=== PATIENT | female | born 1950 | race American Indian/Alaskan Native ===

== ENCOUNTER 2016-05-29 18:56 | Inpatient (IN) | payer MEDICARE ==
--- NOTE | 2016-05-29 20:12 | Emergency Department Report ---
Chief Complaint: GI Bleed Stated Complaint: RECTAL BLEEDING Time Seen by Provider: 05/29/16 20:05 - HPI History of Present Illness: Patient here with her family who reports that patient has rectal bleeding she had similar episode 6 weeks ago and she had blood transfusion at this hospital. Patient says she has a history of hemorrhoid and she had hemorrhoid surgery in the past. She says she was referred to Dr. Saucedo who she saw and was scheduled to have a EGD done next week. Patient says she had a colonoscopy April 2016. She complains of abdominal pain on and off but feels crampy in its 5 out of 10. Vital reported the patient is blind and that she noted when patient have a bowel movement she has large amount of bright red blood in the toilet. Denies taking any blood thinners. Patient has a history of diabetes, high blood pressure, acid reflux and anemia. She reports short of breath on exertion. Denies any chest pain, fever or chills or nausea vomiting - ROS Review of Systems: All systems are negative unless stated in HPI above. - Exam Vital Signs: Vital Signs 05/29/16 19:48 Temperature 98.8 F Pulse Rate 132 H Respiratory 18 Rate Blood Pressure 98/60 O2 Sat by Pulse 100 Oximetry Physical Exam: General: This is a 65-year-old female well-nourished well-developed in no acute distress. CV: Patient is tachycardic at 132 and blood pressure is 98/60. Lungs: clear To auscultate bilaterally. Normal work of breathing MSE screening note: Focused history and physical exam performed. Due to findings the following was ordered:see [facility] ED Medical Decision Making - Medical Decision Making Medical decision making: Patient seen by provider in triage area. Appropriate protocol activated and patient to main ED to be seen by physician. ED Disposition for MSE Condition: Stable Forms: Accompanied Note
[2016-05-29] MEDS ORDERED: NACL 0.9% 1000 ML 1,000 ML IV ONE (20:44)
--- NOTE | 2016-05-29 20:46 | Emergency Department Report ---
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 Multiple admissions for bright red blood per rectum requiring packed red blood cell transfusion. Surgical history includes cholecystectomy, hysterectomy, hernia repair, partial colectomy, as per history and physical from 04/09/2016. This is a 65-year-old female, previously unknown to me. Presents to the ER with 1 week of bright red blood per rectum. Admits to mild crampy abdominal discomfort. Positive dizziness, positive lightheadedness. No chest pain. Mild shortness of breath. Patient has been seen by gastroenterology, Dr. zimmerman, Dr. Saucedo in the past. MD complaint: gross hematochezia -: days(s) Quality: cramping Consistency: intermittent Improves with: none Worsens with: none Context: history of GI bleed Associated Symptoms: abdominal pain, loss of appetite, weakness - Related Data Home Medications Medication Instructions Recorded Confirmed Last Taken Metformin HCl [metFORMIN ER] 500 mg PO BID 01/22/13 05/29/16 1 Day Ago 500 glipiZIDE [glipiZIDE ER] 10 mg PO BID 01/22/13 05/29/16 1 Day Ago 10 amLODIPine [Norvasc] 10 mg PO DAILY 05/23/15 05/29/16 1 Day Ago 10 Iron,Carbonyl/Vit C/Vit B12/FA 3 tab PO QDAY 06/13/15 05/29/16 1 Day Ago [Iron 100 Plus Tablet] 1 Lisinopril 40 mg PO QDAY 06/13/15 05/29/16 1 Day Ago 40 Previous Rx's Medication Instructions Recorded Last Taken Type Pantoprazole [Protonix TAB] 40 mg PO DAILY #30 tablet 05/25/15 1 Day Ago Rx 40 Allergies Allergy/AdvReac Type Severity Reaction Status Date / Time No Known Allergies Allergy Verified 04/05/14 11:54 ED Review of Systems ROS: Stated complaint: RECTAL BLEEDING Other details as noted in HPI Constitutional: malaise, weakness Eyes: denies: vision change ENT: denies: epistaxis Respiratory: see HPI Cardiovascular: denies: chest pain Gastrointestinal: abdominal pain, hematochezia Genitourinary: as per HPI Musculoskeletal: as per HPI Neurological: weakness Psychiatric: as per HPI ED Past Medical Hx - Past Medical History Hx Hypertension: Yes (SINCE 1993) Hx Diabetes: Yes (17YRS) Hx Asthma: Yes ( A CHILD) Hx HIV: No Additional medical history: patient is blind, diverticulitis, hemmorrhoids, rectal prolapse, vaginal prolapse - Surgical History Hx Cholecystectomy: Yes ([facility] 01-28-13) Additional Surgical History: colon surgery and several eye surgeries., hernia repair, - Social History Smoking Status: Former Smoker - Medications Home Medications: Home Medications Medication Instructions Recorded Confirmed Last Taken Type Metformin HCl [metFORMIN ER] 500 mg PO BID 01/22/13 05/29/16 1 Day Ago History 500 glipiZIDE [glipiZIDE ER] 10 mg PO BID 01/22/13 05/29/16 1 Day Ago History 10 amLODIPine [Norvasc] 10 mg PO DAILY 05/23/15 05/29/16 1 Day Ago History 10 Pantoprazole [Protonix TAB] 40 mg PO DAILY #30 tablet 05/25/15 05/29/16 1 Day Ago Rx 40 Iron,Carbonyl/Vit C/Vit B12/FA 3 tab PO QDAY 06/13/15 05/29/16 1 Day Ago History [Iron 100 Plus Tablet] 1 Lisinopril 40 mg PO QDAY 06/13/15 05/29/16 1 Day Ago History 40 ED Physical Exam - General Limitations: No Limitations General appearance: alert, in no apparent distress - Head Head exam: Present: atraumatic, normocephalic - ENT ENT exam: Present: normal exam, mucous membranes moist, normal external ear exam - Neck Neck exam: Present: normal inspection, full ROM. Absent: tenderness, meningismus - Respiratory Respiratory exam: Present: normal lung sounds bilaterally. Absent: respiratory distress, wheezes, rales, rhonchi, stridor, chest wall tenderness - Cardiovascular Cardiovascular Exam: Present: normal rhythm, tachycardia, normal heart sounds. Absent: systolic murmur, diastolic murmur, rubs, gallop - GI/Abdominal GI/Abdominal exam: Present: soft, normal bowel sounds. Absent: distended, tenderness, guarding, rebound, rigid, pulsatile mass - Rectal Rectal exam: Present: normal inspection, normal rectal tone, heme (+) stool, bloody stool - Extremities Exam Extremities exam: Present: normal inspection, full ROM, normal capillary refill. Absent: tenderness, pedal edema, joint swelling, calf tenderness - Back Exam Back exam: Present: normal inspection, full ROM. Absent: tenderness, CVA tenderness (R), CVA tenderness (L), muscle spasm, paraspinal tenderness, vertebral tenderness - Neurological Exam Neurological exam: Present: alert, other (Extraocular movements intact. Tongue midline. No facial droop. Facial sensation intact to light touch in the V1, V2 , V3 distribution bilaterally. 5 and 5 strength in 4 extremities.. Sensation is intact to light touch in 4 extremities.). Absent: motor sensory deficit - Psychiatric Psychiatric exam: Present: normal affect, normal mood - Skin Skin exam: Present: warm, dry, intact, normal color. Absent: rash ED Course Vital Signs 05/29/16 05/29/16 05/29/16 19:48 21:31 22:39 Temperature 98.8 F 98.2 F Pulse Rate 132 H 102 H 98 H Pulse Rate [ Right] Respiratory 18 16 16 Rate Blood Pressure 98/60 118/65 Blood Pressure 118/59 [Left] Blood Pressure [Right Arm] O2 Sat by Pulse 100 95 100 Oximetry 05/29/16 05/29/16 05/29/16 22:54 23:24 23:54 Temperature 98.9 F 98.9 F 98.8 F Pulse Rate 84 74 80 Pulse Rate [ Right] Respiratory 16 16 16 Rate Blood Pressure 128/79 128/69 127/68 Blood Pressure [Left] Blood Pressure [Right Arm] O2 Sat by Pulse 95 Oximetry 05/30/16 05/30/16 00:51 00:54 Temperature 98.4 F 98.4 F Pulse Rate Pulse Rate [ 92 H 92 H Right] Respiratory 18 18 Rate Blood Pressure Blood Pressure [Left] Blood Pressure 129/60 129/60 [Right Arm] O2 Sat by Pulse 99 100 Oximetry - Reevaluation(s) Reevaluation #1: 05/29/16 21:10 Differential diagnosis: Symptomatic anemia, GI bleed, diverticulosis, angiodysplasia Assessment and plan: 65-year-old female with bright red blood per rectum. Markedly anemic, hemoglobin 6, hematocrit 19. tachycardic. IV fluids ordered , packed red blood cells ordered. Case is discussed with gastroenterology on- call, Dr. Serna. His group will see the patient doesn't consult. Case is discussed with the Hospital physician, Dr Mayer, who accepts the patient to their service. 05/29/16 21:12 05/29/16 22:06 ED Medical Decision Making - Lab Data Result diagrams: 05/30/16 13:05 05/30/16 07:46 Vital Signs 05/29/16 19:48 Temperature 98.8 F Pulse Rate 132 H Respiratory 18 Rate Blood Pressure 98/60 O2 Sat by Pulse 100 Oximetry Lab Results 05/29/16 05/29/16 05/29/16 Range/Units 20:27 20:27 20:27 WBC 10.9 (4.5-11.0) K/mm3 RBC 2.25 L (3.65-5.03) M/mm3 Hgb 6.1 L (10.1-14.3) gm/dl Hct 19.1 L* (30.3-42.9) % MCV 85 (79-97) fl MCH 27 L (28-32) pg MCHC 32 (30-34) % RDW 21.2 H (13.2-15.2) % Plt Count 297 (140-440) K/mm3 Lymph % (Auto) 18.7 (13.4-35.0) % Iron % (Auto) 4.7 (0.0-7.3) % Eos % (Auto) 0.7 (0.0-4.3) % Baso % (Auto) 0.5 (0.0-1.8) % Lymph # 2.0 (1.2-5.4) K/mm3 Iron # 0.5 (0.0-0.8) K/mm3 Eos # 0.1 (0.0-0.4) K/mm3 Baso # 0.1 (0.0-0.1) K/mm3 Seg Neutrophils % 75.4 H (40.0-70.0) % Seg Neutrophils # 8.2 H (1.8-7.7) K/mm3 PT 13.1 (12.2-14.9) Sec. INR 1.00 (0.87-1.13) APTT 28.8 (24.2-36.6) Sec. Sodium (137-145) mmol/L Potassium (3.6-5.0) mmol/L Chloride (98-107) mmol/L Carbon Dioxide (22-30) mmol/L Anion Gap mmol/L BUN (7-17) mg/dL Creatinine (0.7-1.2) mg/dL Estimated GFR ml/min BUN/Creatinine Ratio % Glucose (65-100) mg/dL Lactic Acid 2.5 H* (0.7-2.0) mmol/L Calcium (8.4-10.2) mg/dL Magnesium (1.7-2.3) mg/dL Total Bilirubin (0.1-1.2) mg/dL AST (5-40) units/L ALT (7-56) units/L Alkaline Phosphatase (35-129) units/L Total Protein (6.3-8.2) g/dL Albumin (3.9-5) g/dL Albumin/Globulin Ratio % Lipase (13-60) units/L Blood Type Crossmatch 05/29/16 05/29/16 Range/Units 20:27 20:27 WBC (4.5-11.0) K/mm3 RBC (3.65-5.03) M/mm3 Hgb (10.1-14.3) gm/dl Hct (30.3-42.9) % MCV (79-97) fl MCH (28-32) pg MCHC (30-34) % RDW (13.2-15.2) % Plt Count (140-440) K/mm3 Lymph % (Auto) (13.4-35.0) % Iron % (Auto) (0.0-7.3) % Eos % (Auto) (0.0-4.3) % Baso % (Auto) (0.0-1.8) % Lymph # (1.2-5.4) K/mm3 Iron # (0.0-0.8) K/mm3 Eos # (0.0-0.4) K/mm3 Baso # (0.0-0.1) K/mm3 Seg Neutrophils % (40.0-70.0) % Seg Neutrophils # (1.8-7.7) K/mm3 PT (12.2-14.9) Sec. INR (0.87-1.13) APTT (24.2-36.6) Sec. Sodium 137 (137-145) mmol/L Potassium 4.6 (3.6-5.0) mmol/L Chloride 101.1 (98-107) mmol/L Carbon Dioxide 22 (22-30) mmol/L Anion Gap 19 mmol/L BUN 17 (7-17) mg/dL Creatinine 1.0 (0.7-1.2) mg/dL Estimated GFR > 60 ml/min BUN/Creatinine Ratio 17.00 % Glucose 215 H (65-100) mg/dL Lactic Acid (0.7-2.0) mmol/L Calcium 8.8 (8.4-10.2) mg/dL Magnesium 2.1 (1.7-2.3) mg/dL Total Bilirubin < 0.2 (0.1-1.2) mg/dL AST 12 (5-40) units/L ALT 9 (7-56) units/L Alkaline Phosphatase 73 (35-129) units/L Total Protein 6.9 (6.3-8.2) g/dL Albumin 3.8 L (3.9-5) g/dL Albumin/Globulin Ratio 1.2 % Lipase 15 (13-60) units/L Blood Type O POSITIVE Crossmatch See Detail - EKG Data 05/29/16 22:05 Sinus tachycardia, 103 bpm, poor R-wave progression, low voltage, not consistent with STEMI. - Radiology Data Radiology results: report reviewed, image reviewed Noncontrast CT scan of the abdomen and pelvis negative. Critical Care Time: Yes Critical care time in (mins) excluding proc time.: 35 Critical care attestation.: If time is entered above; I have spent that time in minutes in the direct care of this critically ill patient, excluding procedure time. Critical Care Time: Critical care time includes multiple bedside evaluations, interpretation of laboratory studies, radiology studies, time spent managing a patient with active GI bleed requiring packed red blood cell transfusion, and discussion with consulting services, including hospital medicine and gastroenterology. This excludes procedure time. ED Disposition Clinical Impression: Anemia due to acute blood loss, Lower GI bleeding Disposition: OP ADMITTED IP TO THIS HOSP Is pt being admited?: Yes Condition: Good
[2016-05-29 20:52] LABS: Basophils % (Auto) 0.5 % (0.0-1.8); Eosinophils % (Auto) 0.7 % (0.0-4.3); Hemoglobin 6.1 gm/dl (10.1-14.3); Mean Corpuscular HGB Conc 32 % (30-34); Mean Corpuscular Hemoglobin 27 pg (28-32); Mean Corpuscular Volume 85 fl (79-97); Platelet Count 297 K/mm3 (140-440); Red Blood Count 2.25 M/mm3 (3.65-5.03); White Blood Count 10.9 K/mm3 (4.5-11.0)
[2016-05-29 20:55] LABS: Hematocrit 19.1 % (30.3-42.9); Red Cell Distribution Width 21.2 % (13.2-15.2)
[2016-05-29 21:03] LABS: Partial Thromboplastin Time 28.8 Sec. (24.2-36.6)
[2016-05-29] MEDS ORDERED: NACL 0.9% 500 ML 500 ML IV ONE (21:06)
[2016-05-29 21:08] LABS: Alanine Aminotransferase 9 units/L (7-56); Albumin 3.8 g/dL (3.9-5); Albumin/Globulin Ratio 1.2 %; Alkaline Phosphatase 73 units/L (35-129); Anion Gap 19 mmol/L; Bilirubin,Total < 0.2 mg/dL (0.1-1.2); Blood Urea Nitrogen 17 mg/dL (7-17); Calcium 8.8 mg/dL (8.4-10.2); Carbon Dioxide 22 mmol/L (22-30); Chloride 101.1 mmol/L (98-107); Glucose 215 mg/dL (65-100); Lipase 15 units/L (13-60); Magnesium 2.1 mg/dL (1.7-2.3); Potassium 4.6 mmol/L (3.6-5.0); Sodium 137 mmol/L (137-145); Total Protein 6.9 g/dL (6.3-8.2)
--- NOTE | 2016-05-29 21:35 | Admit Criteria Form ---
Admission Criteria Documentation: GASTROINTESTINAL BLEEDING, LOWER Clinical Indications for Admission to Inpatient Care ( Place 'X' for any and all applicable criteria): Admission is indicated for ANY ONE of the following(1)(2)(3)(4)(5): [ X]I. Active gross bleeding per rectum [ ]II. Inpatient admission required rather than observation care (Also use Gastrointestinal Bleeding, Lower: Observation Care as appropriate) because of ANY ONE of the following: [ ]a) Hemodynamic instability that is severe or persistent [ ]b) Anemia requiring inpatient admission as indicated by ALL of the following: [ ]1) Presence of significant clinical finding indicated by ANY ONE of the following: [ ]A. Tachycardia for age [ ]B. Orthostatic vital sign changes [ ]C. Cognitive impairment [ ]D. Heart failure [ ]E. Chest pain [ ]F. Exertional dyspnea [ ]G. Other findings suggesting inadequate perfusion (eg, peripheral or myocardial ischemia, end organ dysfunction) [ ]2) Initial (eg, emergency department, observation care) treatment with transfusion or volume replacement is judged inappropriate (due to severity of the finding) or has been ineffective [ ]c) Severe pain requiring acute inpatient management [ ]d) Absent bowel sounds with complete ileus [ ]e) Signs of intestinal obstruction or peritonitis [A] [ ]f) High-risk low platelet count [ ]g) Severe electrolyte abnormalities requiring inpatient care [ ]h) Acute renal failure [ ]i) High fever or infection requiring inpatient admission as indicated by ANY ONE of the following(8)(9): [ ]1) Appropriate outpatient or observation care antimicrobial treatment unavailable, not effective, or not feasible Documented bacteremia [ ]2) Documented bacteremia [ ]3) Temperature greater than 104.9 degrees F ( 40.5 degrees C) (oral) [ ]4) Temperature greater than 103.1 degrees F ( 39.5 degrees C) (oral) or less than 96.8 degrees F (36 degrees C) (rectal) that does not respond to all emergency treatment measures [ ]j) IV fluid to replace significant ongoing losses ( greater than 3 L/m2 per day) [ ]k) Immediate inpatient surgery needed [ ]l) Parenteral nutrition regimen that must be implemented on inpatient basis [ ]m) Other condition, treatment or monitoring requiring inpatient admission [ ]III. Unstable comorbid illness (renal, hepatic, pulmonary, hematologic, neurologic, or cardiac) [ ]IV. Failure to control bleeding after colonoscopy [ ]V. Coagulopathy [ ]. Suspected or known ischemic colitis(6) [ ]VII. Previous aortic graft placement or known aortic aneurysm Extended stay beyond goal length of stay may be needed for(3)(4)(28): [ ]a) Emergency surgery [ ]b) Coagulation abnormalities(26) [ ]c) Recurrent or persistent bleeding, continued vital sign instability(27)( 28) [ ]d) Active comorbidities (eg, renal insufficiency, heart failure, pre- existing liver disease) The original [employer] content created by [employer] has been revised. The portions of the content which have been revised are identified through the use of italic text or in bold, and [facility] has neither reviewed nor approved the modified material. All other unmodified content is copyright [employer] [facility]. Please see references footnoted in the original [employer] edition 2016 Admission Criteria Met: Yes
--- NOTE | 2016-05-29 21:46 | Cat Scan Report ---
FINAL REPORT EXAM: CT ABDOMEN PELVIS WO CON HISTORY: abd pain GI bleed TECHNIQUE: Standard unenhanced CT of the abdomen and pelvis. Coronal and sagittal reconstruction was also performed. PRIORS: CT a/P 04/08/2016 FINDINGS: Within the abdomen, the liver again demonstrates is stable 1 cm rounded hypodense focus along the lateral right lobe. This is likely a incidental hemangioma given the appearance on the prior study. The spleen, pancreas, adrenal glands, and kidneys are unremarkable. Gallbladder has been surgically removed. No evidence for retroperitoneal or pelvic lymphadenopathy is seen. The bowel loops have normal caliber. No soft tissue mass, fluid collection, inflammatory change, or free air is seen within the abdomen or pelvis. Anastomosis sutures are present in the rectosigmoid region. Small fat containing umbilical hernia is again noted. Within the pelvis, the bladder is unremarkable. The uterus has been surgically removed. Images through the upper abdomen include the lung bases which demonstrate a small 6 mm nodule in the lateral right middle lobe (axial image 9). Bony structures show no focal abnormalities and are intact. IMPRESSION: 1. no acute intra-abdominal process noted. No etiology for GI bleed is seen. 2. Stable hypodensity in the right lobe of the liver, likely a hemangioma 3. Prior cholecystectomy and hysterectomy 4. Stable small umbilical hernia 5. Small 6 mm nodule in the lateral right middle lobe, not previously seen. Follow-up should be according to Fleischner criteria as noted below. FLEISCHNER SOCIETY GUIDELINES FOR MANAGEMENT OF SMALL PULMONARY NODULES DETECTED ON CT SCANS- Nodule Size Low Risk High Risk (mm) > 6-8 Initial F/U CT Initial F/U CT at 6-12 mo then at 3-6 mo then at 18-24 mo if at 9-12 and 24 mo no change if no change Note- Newly detected indeterminate nodule in persons 35 years or older Low-risk patient = Minimal or absent history of smoking and of other known risk factors High risk patient = History of smoking or other known risk factors
[2016-05-29 22:01] LABS: Bacteria,Urine 1+ /HPF (Negative); Bilirubin,Urine NEG (Negative); Blood,Urine NEG (Negative); Ketones,Urine NEG (Negative); Leukocyte Esterase,Urine SM (Negative); Mucus,Urine 3+ /HPF; Nitrite,Urine NEG (Negative); Protein,Urine <15 mg/dL mg/dL (Negative); Urobilinogen,Urine < 2.0 mg/dL (<2.0)
--- NOTE | 2016-05-29 23:39 | History and Physical Report ---
History of Present Illness Date of examination: 05/29/16 Date of admission: 05/29/16 22:12 History of present illness: 65-year-old history of hypertension, diabetes, gastroparesis, diverticulosis, bilateral blindness due to uveitis comes emergency room with complaints of bright red blood per rectum for 1 week, episodes a day. Patient also admits to mid lower abdominal pain she describes as crampy, constant, intensity 5/10, no radiation and she cannot identify exacerbating factor Patient denies chest pain, palpitation, shortness of breath, cough, dysuria, frequency, focal weakness, dysarthria, fever chills, polydipsia polyuria, hot or cold intolerance, easy bruisability, or rash or bleeding from mucosal membrane, rhinorrhea, epistaxis, earache, tinnitus, blurry vision, eye discharge , anxiety, depression. Other review of systems negative PAST SURGICAL HISTORY: Cholecystectomy hysterectomy, hernia repair, partial colectomy SOCIAL HISTORY: Denies alcohol, tobacco, drugs FAMILY HISTORY: Hypertension, diabetes Medications and Allergies Allergies Allergy/AdvReac Type Severity Reaction Status Date / Time No Known Allergies Allergy Verified 04/05/14 11:54 Home Medications Medication Instructions Recorded Confirmed Last Taken Type Metformin HCl [metFORMIN ER] 500 mg PO BID 01/22/13 05/29/16 1 Day Ago History 500 glipiZIDE [glipiZIDE ER] 10 mg PO BID 01/22/13 05/29/16 1 Day Ago History 10 amLODIPine [Norvasc] 10 mg PO DAILY 05/23/15 05/29/16 1 Day Ago History 10 Pantoprazole [Protonix TAB] 40 mg PO DAILY #30 tablet 05/25/15 05/29/16 1 Day Ago Rx 40 Iron,Carbonyl/Vit C/Vit B12/FA 3 tab PO QDAY 06/13/15 05/29/16 1 Day Ago History [Iron 100 Plus Tablet] 1 Lisinopril 40 mg PO QDAY 06/13/15 05/29/16 1 Day Ago History 40 Exam - Physical Exam Narrative exam: Gen. appearance: Patient lying in bed, no apparent distress HEENT: Normocephalic, atraumatic, pupils equally round and reactive to light, extraocular movement intact, and no sclericterus,. No JVD or thyromegaly or nodule,neck supple, no carotid bruit ,mucous membranes moist, no exudate or erythema Heart: S1, S2, regular rate and rhythm Lungs: Clear to auscultation bilaterally, breathing comfortable Abdomen: Positive bowel sounds, nontender, nondistended, no organomegaly Extremity: No edema, cyanosis, clubbing Skin: No rash, nodules, warm, dry Neuro: Oriented 3, cranial nerves II-12 intact, speech is fluent, motor and sensory intact - Constitutional Vitals: Temp Pulse Resp BP Pulse Ox 98.9 F 74 16 128/69 95 05/29/16 23:24 05/29/16 23:24 05/29/16 23:24 05/29/16 23:24 05/29/16 22:54 Results - Labs CBC & Chem 7: 05/30/16 01:45 05/29/16 20:27 Assessment and Plan LGIB most likely diverticular in nature Anemia secondary to blood loss Hypertension diabetes complicated by gastroparesis Uveitis Admits medicine Transfuse 3 units pack blood cells, start IV fluid, consult GI, check serial hemoglobin Check fingersticks and initiate insulin sliding scale, start DVT prophylaxis
[2016-05-30] MEDS ORDERED: NACL 0.45% 1000 ML 1,000 ML IV SCH (00:51)
[2016-05-30] MEDS ORDERED: TYLENOL PO PRN (00:51)
[2016-05-30] MEDS ORDERED: ZOFRAN IV PRN (00:51)
[2016-05-30] MEDS ORDERED: MORPHINE IV PRN (00:51)
[2016-05-30] MEDS ORDERED: MILK OF MAGNESIA PO PRN (00:51)
[2016-05-30 02:03] LABS: Hematocrit 23.2 % (30.3-42.9); Hemoglobin 7.6 gm/dl (10.1-14.3)
[2016-05-30] MEDS ORDERED: NACL 0.9% 500 ML 500 ML IV ONE (04:31)
[2016-05-30 08:20] LABS: Basophils % (Auto) 0.6 % (0.0-1.8); Eosinophils % (Auto) 1.4 % (0.0-4.3); Hematocrit 31.4 % (30.3-42.9); Hemoglobin 10.7 gm/dl (10.1-14.3); Mean Corpuscular HGB Conc 34 % (30-34); Mean Corpuscular Hemoglobin 29 pg (28-32); Mean Corpuscular Volume 86 fl (79-97); Platelet Count 206 K/mm3 (140-440); Red Blood Count 3.66 M/mm3 (3.65-5.03); Red Cell Distribution Width 16.4 % (13.2-15.2); White Blood Count 9.6 K/mm3 (4.5-11.0)
[2016-05-30 08:40] LABS: Anion Gap 19 mmol/L; BUN/Creatinine Ratio 12.22; Blood Urea Nitrogen 11 mg/dL (7-17); Calcium 8.4 mg/dL (8.4-10.2); Carbon Dioxide 21 mmol/L (22-30); Chloride 107.8 mmol/L (98-107); Glucose 112 mg/dL (65-100); Potassium 3.8 mmol/L (3.6-5.0); Sodium 144 mmol/L (137-145)
[2016-05-30 09:52] LABS: Hematocrit 35.1 % (30.3-42.9); Hemoglobin 11.5 gm/dl (10.1-14.3)
[2016-05-30 13:22] LABS: Hematocrit 34.2 % (30.3-42.9); Hemoglobin 11.3 gm/dl (10.1-14.3)
--- NOTE | 2016-05-30 17:58 | Progress Note ---
Assessment and Plan - Patient Problems (1) Lower GI bleeding Current Visit: Yes Status: Acute Plan to address problem: D/w Dr Perez--Patient is supposed to have banding of hemorrhoids as outpatient which she did not follow up . Continue to observe. (2) Anemia due to acute blood loss Current Visit: Yes Status: Acute Plan to address problem: Was given 3 units of pRBC and her H/h has improved from 7.6 /23.2 to 11,3 /34.2 (3) Diverticulosis Current Visit: Yes Status: Chronic Qualifiers: Diverticulosis site: diverticulosis of large intestine Diverticulosis bleeding: diverticulosis with bleeding Qualified Code(s): K57.31 - Diverticulosis of large intestine without perforation or abscess with bleeding Plan to address problem: Will defer to GI (4) Hypertension Current Visit: Yes Status: Chronic Qualifiers: Hypertension type: essential hypertension Qualified Code(s): I10 - Essential (primary) hypertension Plan to address problem: Cont Amlodipine 10 mg po qd and Lisinopril 40 mg po qd (5) Diabetes Current Visit: Yes Status: Chronic Qualifiers: Diabetes mellitus type: type 2 Diabetes mellitus complication status: without complication Diabetes mellitus terminal gauger insulin use: without terminal gauger use Qualified Code(s): E11.9 - Type 2 diabetes mellitus without complications Plan to address problem: Coverage for now (6) DVT prophylaxis Current Visit: Yes Status: Acute Plan to address problem: On Scd's Subjective Date of service: 05/30/16 Principal diagnosis: Lower GI bleed Interval history: Gi bleeding has stopped Feels better after prbc transfusion Objective - Constitutional Vitals: Vital Signs - 12hr 05/30/16 05/30/16 05/30/16 05:57 06:27 06:57 Temperature 98.6 F 98.6 F 98.1 F Pulse Rate 89 94 H 93 H Pulse Rate [ Right] Respiratory 18 18 18 Rate Blood Pressure 125/82 135/74 137/66 Blood Pressure [Right Arm] O2 Sat by Pulse Oximetry 05/30/16 05/30/16 05/30/16 07:27 10:04 11:27 Temperature 98.5 F Pulse Rate 94 H Pulse Rate [ 92 H Right] Respiratory 18 18 Rate Blood Pressure 129/76 Blood Pressure 133/75 [Right Arm] O2 Sat by Pulse 97 Oximetry 05/30/16 17:38 Temperature 98.4 F Pulse Rate Pulse Rate [ 87 Right] Respiratory 20 Rate Blood Pressure Blood Pressure 159/83 [Right Arm] O2 Sat by Pulse 98 Oximetry General appearance: Present: no acute distress, well-nourished - EENT Eyes: PERRL, EOM intact ENT: hearing intact, clear oral mucosa Ears: bilateral: normal - Neck Neck: supple, normal ROM - Respiratory Respiratory effort: normal Respiratory: bilateral: CTA - Breasts Breasts: normal - Cardiovascular Rhythm: regular Heart Sounds: Present: S1 & S2. Absent: gallop, rub Extremities: pulses intact, No edema, normal color, Full ROM - Gastrointestinal General gastrointestinal: Present: soft, non-tender, non-distended, normal bowel sounds - Genitourinary Female genitourinary: normal - Integumentary Integumentary: clear, warm, dry - Musculoskeletal Musculoskeletal: 1, strength equal bilaterally - Neurologic Neurologic: moves all extremities - Psychiatric Psychiatric: memory intact, appropriate mood/affect, intact judgment & insight - Labs CBC & Chem 7: 05/30/16 13:05 05/30/16 07:46 Labs: Abnormal lab results 05/30/16 05/30/16 05/30/16 Range/Units 01:45 07:21 07:46 Hgb 7.6 L (10.1-14.3) gm/dl Hct 23.2 L (30.3-42.9) % RDW 16.4 H (13.2-15.2) % [place] % (Auto) 7.6 H (0.0-7.3) % Chloride (98-107) mmol/L Carbon Dioxide (22-30) mmol/L Glucose (65-100) mg/dL POC Glucose 106 H (70-105) 05/30/16 05/30/16 05/30/16 Range/Units 07:46 11:24 17:30 Hgb (10.1-14.3) gm/dl Hct (30.3-42.9) % RDW (13.2-15.2) % [place] % (Auto) (0.0-7.3) % Chloride 107.8 H (98-107) mmol/L Carbon Dioxide 21 L (22-30) mmol/L Glucose 112 H (65-100) mg/dL POC Glucose 131 H 111 H (70-105)
--- NOTE | 2016-05-30 23:34 | Gastroenterology Consultation ---
History of Present Illness - Reason for Consult Consult date: 05/30/16 Anemia/rectal bleeding Requesting physician: DELANEY GUTIÉRREZ - History of Present Illness Asked to see this pleasant 65yo woman for evaluation of recurrent hematochezia and anemia. I have seen her in 03/2016 and performed a flex sig; she has a hx of subtotal colectomy. Exam was benign and noted small internal hemorrhoids. She was recently hospitalized with significant anemia requiring PRBC transfusion. She was discharged home and is schedule to undergo a flex sig with hemorrhoid banding with Dr. Saucedo next week. She is now re-admitted with anemia and hematochezia. No melena, abdominal pain, vomiting, CP/SOB. Past History Past Medical History: diabetes, hypertension, other (diverticulosis, uveitis) Past Surgical History: hysterectomy, Other (subtotal colectomy) Social history: no significant social history Family history: hypertension Medications and Allergies Allergies Allergy/AdvReac Type Severity Reaction Status Date / Time No Known Allergies Allergy Verified 04/05/14 11:54 Home Medications Medication Instructions Recorded Confirmed Last Taken Type Metformin HCl [metFORMIN ER] 500 mg PO BID 01/22/13 05/29/16 1 Day Ago History 500 glipiZIDE [glipiZIDE ER] 10 mg PO BID 01/22/13 05/29/16 1 Day Ago History 10 amLODIPine [Norvasc] 10 mg PO DAILY 05/23/15 05/29/16 1 Day Ago History 10 Pantoprazole [Protonix TAB] 40 mg PO DAILY #30 tablet 05/25/15 05/29/16 1 Day Ago Rx 40 Iron,Carbonyl/Vit C/Vit B12/FA 3 tab PO QDAY 06/13/15 05/29/16 1 Day Ago History [Iron 100 Plus Tablet] 1 Lisinopril 40 mg PO QDAY 06/13/15 05/29/16 1 Day Ago History 40 Active Meds: Active Medications Acetaminophen (Tylenol) 650 mg PO Q4H PRN PRN Reason: Pain MILD(1-3)/Fever >100.5/RESENDEZ Sodium Chloride (Nacl 0.45% 1000 Ml) 1,000 mls @ 75 mls/hr IV DIRECT SAUL Last Admin: 05/30/16 01:41 Dose: 75 mls/hr Magnesium Hydroxide (Milk Of Magnesia) 30 ml PO Q4H PRN PRN Reason: Constipation Morphine Sulfate (Morphine) 2 mg IV Q4H PRN PRN Reason: Pain, Moderate (4-6) Ondansetron HCl (Zofran) 4 mg IV Q8H PRN PRN Reason: N/V unrelieved by Reglan Review of Systems - Review of Systems All systems: negative (rectal bleeding, fatigue) Exam - Constitutional Vital Signs: Temp Pulse Resp BP Pulse Ox 98.1 F 92 H 19 140/77 96 05/30/16 20:26 05/30/16 20:26 05/30/16 20:26 05/30/16 20:26 05/30/16 22:00 General appearance: no acute distress - Neck Neck: supple - Respiratory Respiratory effort: normal Respiratory: bilateral: CTA - Cardiovascular Rhythm: regular Heart Sounds: Present: S1 & S2 Extremities: No edema - Gastrointestinal General gastrointestinal: Present: soft, non-tender, non-distended, normal bowel sounds - Neurologic Neurological: alert and oriented x3 - Psychiatric Psychiatric: appropriate mood/affect - Labs CBC & Chem 7: 05/30/16 13:05 05/30/16 07:46 Lab Results: Laboratory Results - last 24 hr 05/30/16 05/30/16 05/30/16 01:45 07:21 07:46 WBC 9.6 RBC 3.66 Hgb 7.6 L 10.7 D Hct 23.2 L 31.4 D MCV 86 MCH 29 MCHC 34 RDW 16.4 H Plt Count 206 Lymph % (Auto) 26.1 [place] % (Auto) 7.6 H Eos % (Auto) 1.4 Baso % (Auto) 0.6 Lymph # 2.5 [place] # 0.7 Eos # 0.1 Baso # 0.1 Seg Neutrophils % 64.3 Seg Neutrophils # 6.2 Sodium Potassium Chloride Carbon Dioxide Anion Gap BUN Creatinine Estimated GFR BUN/Creatinine Ratio Glucose POC Glucose 106 H Calcium 05/30/16 05/30/16 05/30/16 07:46 09:20 11:24 WBC RBC Hgb 11.5 Hct 35.1 MCV MCH MCHC RDW Plt Count Lymph % (Auto) [place] % (Auto) Eos % (Auto) Baso % (Auto) Lymph # [place] # Eos # Baso # Seg Neutrophils % Seg Neutrophils # Sodium 144 D Potassium 3.8 Chloride 107.8 H Carbon Dioxide 21 L Anion Gap 19 BUN 11 Creatinine 0.9 Estimated GFR > 60 BUN/Creatinine Ratio 12.22 Glucose 112 H POC Glucose 131 H Calcium 8.4 05/30/16 05/30/16 05/30/16 13:05 17:30 21:29 WBC RBC Hgb 11.3 Hct 34.2 MCV MCH MCHC RDW Plt Count Lymph % (Auto) [place] % (Auto) Eos % (Auto) Baso % (Auto) Lymph # [place] # Eos # Baso # Seg Neutrophils % Seg Neutrophils # Sodium Potassium Chloride Carbon Dioxide Anion Gap BUN Creatinine Estimated GFR BUN/Creatinine Ratio Glucose POC Glucose 111 H 226 H Calcium Assessment and Plan 65f with above medical hx a/w recurrent anemia and hematochezia. Rec: 1) Would not opt to re-perform lower GI endoscopy as an inpatient 2) She should keep her appt for the flex sig with banding 3) I would also favor placing a pill cam endoscopically, given that her recurrent bleeding could be from a small bowel bleed 4) Monitor Hb and if stable in AM, would be ok with discharging her from a GI standpoint Thank you for allowing me to participate in the care of your patient. Please do not hesitate to contact me with any questions.
[2016-05-31 05:56] LABS: Basophils % (Auto) 0.4 % (0.0-1.8); Eosinophils % (Auto) 2.6 % (0.0-4.3); Hematocrit 33.6 % (30.3-42.9); Hemoglobin 11.3 gm/dl (10.1-14.3); Mean Corpuscular HGB Conc 34 % (30-34); Mean Corpuscular Hemoglobin 29 pg (28-32); Mean Corpuscular Volume 87 fl (79-97); Platelet Count 232 K/mm3 (140-440); Red Blood Count 3.86 M/mm3 (3.65-5.03); Red Cell Distribution Width 16.9 % (13.2-15.2); White Blood Count 8.9 K/mm3 (4.5-11.0)
[2016-05-31 06:19] LABS: Alanine Aminotransferase 8 units/L (7-56); Albumin 3.3 g/dL (3.9-5); Alkaline Phosphatase 71 units/L (35-129); BUN/Creatinine Ratio 13.75; Bilirubin,Total 0.2 mg/dL (0.1-1.2); Blood Urea Nitrogen 11 mg/dL (7-17); Calcium 8.5 mg/dL (8.4-10.2); Carbon Dioxide 23 mmol/L (22-30); Chloride 105.7 mmol/L (98-107); Glucose 123 mg/dL (65-100); Potassium 3.8 mmol/L (3.6-5.0); Sodium 142 mmol/L (137-145); Total Protein 6.5 g/dL (6.3-8.2)
[2016-05-31 06:24] LABS: Anion Gap 17 mmol/L
--- NOTE | 2016-05-31 07:48 | Gastroenterology Progress Note ---
Assessment and Plan 65f with above medical hx a/w recurrent anemia and hematochezia. Rec: 1) Would not opt to re-perform lower GI endoscopy as an inpatient 2) She should keep her appt for the flex sig with banding (Dr. Saucedo) 3) I would also favor placing a pill cam endoscopically, given that her recurrent bleeding could be from a small bowel bleed OK to d/c from GI standpoint. I will stop following daily, but please do not hesitate to contact me with any questions. Thank you! Subjective Date of service: 05/31/16 Principal diagnosis: Lower GI bleed Interval history: Pt seen/examined today. Had small amt of BRBPR overnight. Hb remains 11.3. No CP/SOB. Objective - Constitutional Vitals: Temp Pulse Resp BP Pulse Ox 98.0 F 85 16 121/69 85 05/31/16 07:37 05/31/16 07:37 05/31/16 07:37 05/31/16 07:37 05/31/16 07:37 General appearance: no acute distress - Neck Neck: supple - Respiratory Respiratory: bilateral: CTA - Cardiovascular Rhythm: regular Heart Sounds: Present: S1 & S2 - Extremities Extremities: No edema - Gastrointestinal General gastrointestinal: Present: soft, non-tender, non-distended, normal bowel sounds - Neurologic Neurological: alert and oriented x3 - Psychiatric Psychiatric: appropriate mood/affect - Labs CBC & Chem 7: 05/31/16 05:29 05/31/16 05:29 Labs: Laboratory Results - last 24 hr 05/30/16 05/30/16 05/30/16 07:21 07:46 07:46 WBC 9.6 RBC 3.66 Hgb 10.7 D Hct 31.4 D MCV 86 MCH 29 MCHC 34 RDW 16.4 H Plt Count 206 Lymph % (Auto) 26.1 [place] % (Auto) 7.6 H Eos % (Auto) 1.4 Baso % (Auto) 0.6 Lymph # 2.5 [place] # 0.7 Eos # 0.1 Baso # 0.1 Seg Neutrophils % 64.3 Seg Neutrophils # 6.2 Sodium 144 D Potassium 3.8 Chloride 107.8 H Carbon Dioxide 21 L Anion Gap 19 BUN 11 Creatinine 0.9 Estimated GFR > 60 BUN/Creatinine Ratio 12.22 Glucose 112 H POC Glucose 106 H Calcium 8.4 Total Bilirubin AST ALT Alkaline Phosphatase Total Protein Albumin Albumin/Globulin Ratio 05/30/16 05/30/16 05/30/16 09:20 11:24 13:05 WBC RBC Hgb 11.5 11.3 Hct 35.1 34.2 MCV MCH MCHC RDW Plt Count Lymph % (Auto) [place] % (Auto) Eos % (Auto) Baso % (Auto) Lymph # [place] # Eos # Baso # Seg Neutrophils % Seg Neutrophils # Sodium Potassium Chloride Carbon Dioxide Anion Gap BUN Creatinine Estimated GFR BUN/Creatinine Ratio Glucose POC Glucose 131 H Calcium Total Bilirubin AST ALT Alkaline Phosphatase Total Protein Albumin Albumin/Globulin Ratio 05/30/16 05/30/16 05/31/16 17:30 21:29 05:29 WBC 8.9 RBC 3.86 Hgb 11.3 Hct 33.6 MCV 87 MCH 29 MCHC 34 RDW 16.9 H Plt Count 232 Lymph % (Auto) 23.0 [place] % (Auto) 7.8 H Eos % (Auto) 2.6 Baso % (Auto) 0.4 Lymph # 2.0 [place] # 0.7 Eos # 0.2 Baso # 0.0 Seg Neutrophils % 66.2 Seg Neutrophils # 5.9 Sodium Potassium Chloride Carbon Dioxide Anion Gap BUN Creatinine Estimated GFR BUN/Creatinine Ratio Glucose POC Glucose 111 H 226 H Calcium Total Bilirubin AST ALT Alkaline Phosphatase Total Protein Albumin Albumin/Globulin Ratio 05/31/16 05/31/16 05:29 07:07 WBC RBC Hgb Hct MCV MCH MCHC RDW Plt Count Lymph % (Auto) [place] % (Auto) Eos % (Auto) Baso % (Auto) Lymph # [place] # Eos # Baso # Seg Neutrophils % Seg Neutrophils # Sodium 142 Potassium 3.8 Chloride 105.7 Carbon Dioxide 23 Anion Gap 17 BUN 11 Creatinine 0.8 Estimated GFR > 60 BUN/Creatinine Ratio 13.75 Glucose 123 H POC Glucose 123 H Calcium 8.5 Total Bilirubin 0.2 AST 12 ALT 8 Alkaline Phosphatase 71 Total Protein 6.5 Albumin 3.3 L Albumin/Globulin Ratio 1.0
--- NOTE | 2016-05-31 10:32 | Discharge Summary ---
Providers - Providers Date of Admission: 05/29/16 22:12 Attending physician: RITA MAHONEY Primary care physician: BRITNEY HANNAH Hospitalization Condition: Good Hospital course: 65 YO Female admitted for GI bleeding, symptomatic anemia. Pt treated [facility] GI bleeding protocol. GI team consulted. Pt treated with transfusion of PRBC, and PPI therapy with resolution of symptoms. Pt convalesced well during hospital course. Pt symptoms resolved with PPI therapy and supportive care. . Pt medically optimized and back to usual state of health. Pt evaluated prior to discharge but no significant new physical exam findings. Pt cleared for discharge as per GI service. Pt discharged home and instructed to f/u pcp 1wk, 35 minutes dedicated to patient discharge and education. Disposition: DC/TX HOME UNDER HOME HEALTH - Discharge Diagnoses (1) Symptomatic anemia Status: Acute (2) Anemia due to acute blood loss Status: Acute (3) Diabetes Status: Chronic Qualifiers: Diabetes mellitus type: type 2 Diabetes mellitus complication status: without complication Diabetes mellitus skilled nursing insulin use: without technician terminal and repeater use Qualified Code(s): E11.9 - Type 2 diabetes mellitus without complications (4) Diverticulosis Status: Chronic Qualifiers: Diverticulosis site: diverticulosis of large intestine Diverticulosis bleeding: diverticulosis with bleeding Qualified Code(s): K57.31 - Diverticulosis of large intestine without perforation or abscess with bleeding (5) Hypertension Status: Chronic Qualifiers: Hypertension type: essential hypertension Qualified Code(s): I10 - Essential (primary) hypertension (6) DVT prophylaxis Status: Acute Core Measure Documentation - Palliative Care Palliative Care/ Comfort Measures: Not Applicable - Core Measures Any of the following diagnoses?: none Exam - Constitutional Vitals: Temp Pulse Resp BP Pulse Ox 98.0 F 85 16 121/69 85 05/31/16 07:37 05/31/16 07:37 05/31/16 07:37 05/31/16 07:37 05/31/16 07:37 General appearance: Present: no acute distress, well-nourished - EENT Eyes: Present: PERRL ENT: hearing intact, clear oral mucosa - Neck Neck: Present: supple, normal ROM - Respiratory Respiratory effort: normal Respiratory: bilateral: CTA - Cardiovascular Heart Sounds: Present: S1 & S2. Absent: rub, click - Extremities Extremities: pulses symmetrical, No edema Peripheral Pulses: within normal limits - Abdominal General gastrointestinal: Present: soft, non-tender, non-distended, normal bowel sounds Female genitourinary: Present: normal - Integumentary Integumentary: Present: clear, warm, dry - Musculoskeletal Musculoskeletal: gait normal, strength equal bilaterally - Psychiatric Psychiatric: appropriate mood/affect, intact judgment & insight - Neurologic Neurologic: CNII-XII intact, moves all extremities Plan Activity: advance as tolerated Follow up with: DR BRIELLE [Other] - 3-5 Days EVERARDO CLAYTON MD [Staff Physician] - 7 Days PHILLIP BAY MD [Staff Physician] - 7 Days Forms: Accompanied Note
[2016-05-31 13:32] VITALS: BP 114/64
== END 2016-05-31 13:00 | disposition home health service (06) | DRG 378 ==
LOC: ED 18:56 → 4A 22:12
PROVIDERS: ADMIT Internal Medicine; ATTEND Internal Medicine
PROC: 30233N1 Transfusion of Nonautologous Red Blood Cells into Peripheral Vein, Percutaneous Approach (ICD-10-PCS; principal; 2016-05-29)
DX: K57.31 Diverticulosis of large intestine without perforation or abscess with bleeding (principal); H20.9 Unspecified iridocyclitis; D62 Acute posthemorrhagic anemia; E13.43 Other specified diabetes mellitus with diabetic autonomic (poly)neuropathy; K31.84 Gastroparesis; I10 Essential (primary) hypertension; H54.0 Blindness, both eyes; J45.909 Unspecified asthma, uncomplicated; Z82.49 Family history of ischemic heart disease and other diseases of the circulatory system; Z83.3 Family history of diabetes mellitus; Z90.710 Acquired absence of both cervix and uterus; Z90.49 Acquired absence of other specified parts of digestive tract
CPT/HCPCS: 36415; 74176; 80048; 80053; 81001; 82140; 82271; 82962; 83690; 83735; 85014; 85018; 85025; 85610; 85730; 86850; 86900; 86901; 86920; 87086; 93005; 93010; 99291; J7030; J7040; P9016

== ENCOUNTER 2016-06-05 06:52 | Day surgery (SDC) | payer MEDICARE ==
--- NOTE | 2016-05-30 11:43 | Gastroenterology Consultation ---
History of Present Illness - Reason for Consult Consult date: 05/30/16 BRBPR, anemia Requesting physician: RICKY AVALOS - History of Present Illness Ms. Serrano is a 65 y/o female admitted with intermittent 1 week hx of BRBPR. She has an extensive hx of BRBPR and iron deficiency anemia. She denies N/V or diarrhea but states she also has intermittent cramping in her abdomen. She has underwent two different past GI workups. She was seen in 06/2015 with EGD revealing gastroparesis and a colonoscopy in 05/2015 revealing a small rectal polyp, subtotal colectomy with normal anastamosis and mild diverticulosis. She was also seen in consult at [facility] 04/10/16 for anemia and BRBPR and underwent EGD -normal and flex sig normal (normal appearing anastamosis) up to 25 cm. It was noted that she has small internal hemorrhoids. She attempted a pill cam per office but was unable to swallow the pill. She is also seeing Dr. Staples for iron infusions. On admission H/H noted to be 6.1/19.1. She has had several episodes in the past with significant anemia. Past History Past Medical History: diabetes, hypertension, other (blind, diverticulosis) Past Surgical History: hysterectomy, Other (hernia repair, colectomy) Social history: lives with family Family history: no significant family history Medications and Allergies Allergies Allergy/AdvReac Type Severity Reaction Status Date / Time No Known Allergies Allergy Verified 04/05/14 11:54 Home Medications Medication Instructions Recorded Confirmed Last Taken Type Metformin HCl [metFORMIN ER] 500 mg PO BID 01/22/13 05/29/16 1 Day Ago History 500 glipiZIDE [glipiZIDE ER] 10 mg PO BID 01/22/13 05/29/16 1 Day Ago History 10 amLODIPine [Norvasc] 10 mg PO DAILY 05/23/15 05/29/16 1 Day Ago History 10 Pantoprazole [Protonix TAB] 40 mg PO DAILY #30 tablet 05/25/15 05/29/16 1 Day Ago Rx 40 Iron,Carbonyl/Vit C/Vit B12/FA 3 tab PO QDAY 06/13/15 05/29/16 1 Day Ago History [Iron 100 Plus Tablet] 1 Lisinopril 40 mg PO QDAY 02/02/16 01/18/17 1 Day Ago History 40 Review of Systems - Review of Systems Gastrointestinal: abdominal pain, BRBPR Exam - Constitutional General appearance: no acute distress - EENT Eyes: EOM intact ENT: hearing intact - Neck Neck: supple - Respiratory Respiratory: bilateral: CTA - Cardiovascular Rhythm: regular Heart Sounds: Present: S1 & S2 Extremities: pulses intact - Gastrointestinal General gastrointestinal: Present: soft, non-tender, non-distended - Integumentary Integumentary: Present: warm, dry - Neurologic Neurological: alert and oriented x3, other (blind) - Psychiatric Psychiatric: appropriate mood/affect, cooperative Assessment and Plan 1. BRBPR 2. Anemia -Patient is ongoing for GI workup for anemia. No etiology has been found to this point, however the patient was not able to swallow pill cam therefore small bowel has not been assessed. She is noted on prior colonoscopy to have mild diverticulosis as well as small internal hemorrhoids. EGDs have been benign. H/H now stable s/p PRBC infusion. She is scheduled to have flex sig with hemorrhoidal banding on 06/05/[address] Saucedo. She is also being seen by hematology as an outpatient for iron infusions. Ok for clear liquid diet. Consider evaluation of small bowel through placement of pill cam per endoscopy vs hemorrhoidal banding vs diverticular? Further recommendations to follow.
[2016-06-05] MEDS ORDERED: WATER FOR IRRIG STERILE IR ONE (07:07)
[2016-06-05] MEDS ORDERED: NACL 0.9% 1000 ML 1,000 ML IV SCH (08:00)
[2016-06-05] MEDS ORDERED: DIPRIVAN 10 MG/ML IV ONE ×2 (08:34)
--- NOTE | 2016-06-05 08:35 | Anesthesia Consultation ---
Anesthesia Consult and Med Hx Date of service: 06/05/16 - Airway Anesthetic Teeth Evaluation: Poor, Partials ROM Head & Neck: Inadequate Mental/Hyoid Distance: Inadequate Mallampati Class: Class III Intubation Access Assessment: Possibly Difficult - Pulmonary Exam CTA: Yes - Cardiac Exam Cardiac Exam: RRR - Pre-Operative Health Status ASA Pre-Surgery Classification: ASA3 Proposed Anesthetic Plan: MAC - Pulmonary Hx Smoking: Yes (quit in 1987) Hx Asthma: Yes Hx Sleep Apnea: No (high risk sleep apnea, patient states "I snore loudly") - Cardiovascular System Hx Hypertension: Yes - Central Nervous System Hx Psychiatric Problems: No - Gastrointestinal Hx Gastroesophageal Reflux Disease: No - Endocrine Hx Non-Insulin Dependent Diabetes: Yes (A1C 6.1 <6 months) - Hematic Hx Anemia: Yes Hx Sickle Cell Disease: No - Other Systems Hx Alcohol Use: No Hx Substance Use: No Hx Cancer: No Hx Obesity: No - Additional Comments Anesthesia Medical History Comments: Patient is legally blind. Sister, Ingris, is POA.
--- NOTE | 2016-06-05 08:36 | Anesthesia Day of Surgery ---
Anesthesia Day of Surgery - Day of Surgery Patient Examined: Yes Patient H&P Reviewed: Yes Patient is NPO: Yes
--- NOTE | 2016-06-05 10:14 | Short Stay Summary ---
Short Stay Documentation Date of service: 06/05/16 - History H&P: dictated (see consultation from 05/30/2016) Past Medical History: diabetes, hypertension, other (blind, diverticulosis) Past Surgical History: hysterectomy, Other (hernia repair, colectomy) Social history: lives with family - Allergies and Medications Current Medications: Allergies No Known Allergies Allergy (Verified 04/05/14 11:54) Home Medications Medication Instructions Recorded Confirmed Last Taken Type Metformin HCl [metFORMIN ER] 500 mg PO BID 01/22/13 06/05/16 06/03/16 History glipiZIDE [glipiZIDE ER] 10 mg PO BID 01/22/13 06/05/16 06/03/16 History amLODIPine [Norvasc] 10 mg PO DAILY 05/23/15 06/05/16 06/04/16 History Lisinopril 40 mg PO QDAY 06/13/15 06/05/16 06/04/16 History Active Medications Sodium Chloride (Nacl 0.9% 1000 Ml) 1,000 mls @ 50 mls/hr IV DIRECT SAUL Last Admin: 06/05/16 08:06 Dose: 50 mls/hr - Physical exam General appearance: no acute distress Integumentary: no rash, no growths HEENT: Atraumatic, PERRLA, EOMI Lungs: Clear to auscultation, Normal air movement Breasts: deferred Heart: Regular rate, Normal S1, Normal S2, No murmurs, Murmur Gastrointestinal: normal, tenderness, no distended, no masses, no organomegaly, no hepatomegaly, no splenomegaly Female Genitourinary: deferred Rectal Exam: normal exam-external/orifice, no hemorrhoids Extremities: pulses intact Neurological: Normal gait, Normal speech, Strength at 5/5 X4 ext, Normal tone, Sensation intact, Cranial nerves 3-12 NL, Other (blind ou) - Brief post op/procedure progress note Findings: see dictation Estimated blood loss: none Pathology: none Condition: stable - Disposition Condition at discharge: Good Disposition: DISCHARGED TO HOME OR SELFCARE - Discharge Diagnoses (1) Bright red blood per rectum Status: Acute Short Stay Discharge Plan Activity: advance as tolerated Weight Bearing Status: Full Weight Bearing Diet: regular
--- NOTE | 2016-06-05 10:15 | Short Stay Summary ---
Short Stay Documentation - History Past Medical History: diabetes, hypertension, other (blind, diverticulosis) Past Surgical History: hysterectomy, Other (hernia repair, colectomy) Social history: lives with family - Allergies and Medications Current Medications: Allergies No Known Allergies Allergy (Verified 04/05/14 11:54) Home Medications Medication Instructions Recorded Confirmed Last Taken Type Metformin HCl [metFORMIN ER] 500 mg PO BID 01/22/13 06/05/16 06/03/16 History glipiZIDE [glipiZIDE ER] 10 mg PO BID 01/22/13 06/05/16 06/03/16 History amLODIPine [Norvasc] 10 mg PO DAILY 05/23/15 06/05/16 06/04/16 History Lisinopril 40 mg PO QDAY 06/13/15 06/05/16 06/04/16 History Sodium Chloride 0.9% 1000 ml [NaCl 1,000 ml IV DIRECT bag 06/05/16 Unknown Rx 0.9 1000 ML] Active Medications Sodium Chloride (Nacl 0.9% 1000 Ml) 1,000 mls @ 50 mls/hr IV DIRECT SAUL Last Admin: 06/05/16 08:06 Dose: 50 mls/hr - Physical exam Breasts: deferred Heart: Regular rate, Normal S1, Normal S2, No murmurs, Murmur Extremities: pulses intact - Disposition Condition at discharge: Good Disposition: DISCHARGED TO HOME OR SELFCARE - Discharge Diagnoses (1) Bright red blood per rectum Status: Acute Short Stay Discharge Plan Follow up with: ELIN ORTEGA MD [Primary Care Provider] - 7 Days
--- NOTE | 2016-06-05 10:20 | Operative Report ---
Operative Report Operative Report: Date of procedure: 06/05/2016 Preprocedure diagnosis: Rectal bleeding, known internal hemorrhoids from recent evaluation. Anemia requiring transfusion. Negative upper endoscopy. History of subtotal colectomy. Post procedure diagnoses: Internal hemorrhoids. Subtotal colectomy. Apparent rectal anastomosis and sigmoid ileal anastomosis Procedure: Flexible sigmoidoscopy with banding of internal hemorrhoids Endoscopist: Meño Saucedo M.D. Estimated blood loss: 0 Medications: Propofol per anesthesia After careful discussion of the nature and purpose of the procedure, risks, benefits, and alternatives consent was obtained. The patient was placed in the left lateral decubitus position and medicated per anesthesia-see separate records for details. A rectal exam was performed. Sphincter tone was normal and no masses were palpable. The tip of the [employer] EQ 570 video scope was passed transanally and advanced under continuous direct vision to maximal late 25 cm at the ileocolonic anastomosis. The anastomosis was unremarkable in appearance.. Colon preparation was good. Findings included an apparent second anastomosis in the distal rectum versus surgical scarring or other unknown procedures. The rectum revealed 2+ internal hemorrhoids on retroflexed view. The scope was withdrawn and the banding device loaded. Additional procedures performed: Four-quadrant banding of internal hemorrhoids.. The procedure was well-tolerated overall. Conclusions: 2+ internal hemorrhoids. Status post banding. Ileocolonic anastomosis at 25 cm. Surgical scarring in the distal rectum. Plan: Further observation post banding for any future bleeding. Consideration of PillCam study assisted with scope insertion of the pill given failed study because the patient could not swallow previously.. Electronically signing: Meño Saucedo M.D.
--- NOTE | 2016-06-05 10:26 | Post Anesthesia Evaluation ---
- Post Anesthesia Evaluation Patient Participated: Yes Airway Patent: Yes Stable Respiratory Function: Yes Temp > 96.8F: Yes Pain Manageable: Yes Adequeate Hydration: Yes Anesthesia Complications: No Block Receding Appropriately: Not Applicable
[2016-06-05] MEDS ORDERED: SUBLIMAZE IV ONE (10:41)
[2016-06-05] MEDS ORDERED: SUBLIMAZE ONE (10:42)
[2016-06-05 10:57] VITALS: BP 114/69
[2016-06-05] MEDS ORDERED: SUBLIMAZE IV NR (11:00)
== END 2016-06-05 06:53 | disposition home or self-care (01) ==
LOC: GIO 06:52
PROVIDERS: ATTEND Internal Medicine Gastroenterology
DX: K64.8 Other hemorrhoids (principal); E11.9 Type 2 diabetes mellitus without complications; I10 Essential (primary) hypertension; D64.9 Anemia, unspecified; J44.9 Chronic obstructive pulmonary disease, unspecified; Z90.49 Acquired absence of other specified parts of digestive tract; Z98.0 Intestinal bypass and anastomosis status; Z90.710 Acquired absence of both cervix and uterus; Z87.891 Personal history of nicotine dependence
CPT/HCPCS: 45350; 82962; J2704; J3010; J7030

== ENCOUNTER 2017-06-16 15:15 | Emergency (ER) | payer MEDICARE ==
[2017-06-16 17:15] VITALS: BP 130/80
[2017-06-16 17:55] LABS: Basophils % (Auto) 0.3 % (0.0-1.8); Eosinophils % (Auto) 0.4 % (0.0-4.3); Hematocrit 31.8 % (30.3-42.9); Lymphocytes # (Auto) 1.3 K/mm3 (1.2-5.4); Lymphocytes % (Auto) 12.7 % (13.4-35.0); Mean Corpuscular HGB Conc 32 % (30-34); Mean Corpuscular Hemoglobin 28 pg (28-32); Mean Corpuscular Volume 90 fl (79-97); Monocytes # (Auto) 0.6 K/mm3 (0.0-0.8); Monocytes % (Auto) 5.8 % (0.0-7.3); Platelet Count 488 K/mm3 (140-440); Red Blood Count 3.53 M/mm3 (3.65-5.03); Red Cell Distribution Width 16.4 % (13.2-15.2)
[2017-06-16 18:18] LABS: Albumin 4.6 g/dL (3.9-5); Calcium 9.9 mg/dL (8.4-10.2)
[2017-06-16 18:42] LABS: Bacteria,Urine 2+ /HPF (Negative); Bilirubin,Urine NEG (Negative); Blood,Urine NEG (Negative); Color,Urine Yellow (Yellow); Mucus,Urine 1+ /HPF; Nitrite,Urine NEG (Negative); Urobilinogen,Urine < 2.0 mg/dL (<2.0)
== END 2017-06-16 23:15 | disposition left against medical advice (07) ==
LOC: ED 15:15
DX: R53.1 Weakness (principal); Z53.21 Procedure and treatment not carried out due to patient leaving prior to being seen by health care provider
CPT/HCPCS: 36415; 80053; 81001; 85025